=== PATIENT | male | born 1970 | race Caucasian/White ===

== ENCOUNTER 2023-09-10 13:54 | Observation (INO) | payer OTHER ==
[~2023-09-10] VITALS: Ht 182.9 cm; Wt 136.1 kg
[2023-09-10 14:02] VITALS: BP 126/84; PULSE 85; RESP 16; TEMP 98.3; O2SAT 96
[2023-09-10 15:02] LABS: BASOPHILS # (AUTO) 0.1 K/uL (0.00-0.22); BASOPHILS % (AUTO) 0.5 % (0.0-2.0); EOSINOPHILS # (AUTO) 0.3 K/uL (0-0.4); EOSINOPHILS % (AUTO) 3.3 % (0.0-4.0); HEMATOCRIT 44.9 % (36-52); HEMOGLOBIN 14.6 g/dL (12.0-18.0); LYMPHOCYTES # (AUTO) 2.3 K/uL (2.0-11.5); LYMPHOCYTES % (AUTO) 23.2 % (20.5-51.1); MEAN CORPUSCULAR HEMOGLOBIN 27 pg (27-31); MEAN CORPUSCULAR HGB CONC 33 g/dL (33-37); MEAN CORPUSCULAR VOLUME 83.7 fL (80-94); MONOCYTES % (AUTO) 10.4 % (1.7-9.3); NEUTROPHILS # (AUTO) 6.3 K/uL (1.8-7.7); NEUTROPHILS % (AUTO) 62.6 % (42.2-75.2); PLATELET COUNT (AUTO) 176 K/uL (140-450); RED BLOOD CELL COUNT(AUTO) 5.36 MIL/uL (4.20-6.10); RED CELL DISTRIBUTION WIDTH 16.9 % (11.6-13.7)
[2023-09-10] MEDS: MORPHINE SULFATE 4 MG/ML SYR IVP ONE (15:04)
[2023-09-10] MEDS: ONDANSETRON 4 MG/2 ML VIAL IVP ONE (15:04)
[2023-09-10 15:11] LABS: ANION GAP 16.1 (8-16); CALCIUM 9.5 mg/dL (8.5-10.1); CARBON DIOXIDE 25.1 mmol/L (21-32); CREATININE 1.1 mg/dL (0.6-1.3); POTASSIUM 4.2 mmol/L (3.5-5.1)
[2023-09-10 15:29] LABS: ALANINE AMINOTRANSFERASE 12 U/L (12-78); ALBUMIN 3.5 g/dL (3.4-5.0); ALKALINE PHOSPHATASE 101 U/L (50-136); ASPARTATE AMINOTRANSFERASE 8 U/L (15-37); BILIRUBIN,DIRECT 0.2 mg/dL (0.0-0.3); TOTAL BILIRUBIN 1.1 mg/dL (0.0-1.0); TOTAL PROTEIN, SERUM 7.3 g/dL (6.4-8.2)
[2023-09-10] MEDS: FUROSEMIDE 40 MG/4 ML VIAL IVP SCH (17:10)
[2023-09-10] MEDS ORDERED: ACETAMINOPHEN 325 MG TAB PO PRN (17:55)
[2023-09-10] MEDS ORDERED: ONDANSETRON 4 MG/2 ML VIAL IVP PRN (17:55)
[2023-09-10] MEDS ORDERED: DEXTROSE 50% 50 ML SYR IVP PRN ×2 (18:00→19:05)
[2023-09-10] MEDS ORDERED: INSULIN LISPRO SLIDING SCALE 100 UNITS/ML VIAL SUBQ PRN (19:05)
[2023-09-10] MEDS ORDERED: LINA5TAB PO (20:11)
[2023-09-10] MEDS ORDERED: EMPA10TA PO (20:17)
[2023-09-10] MEDS ORDERED: METF-713 PO (20:17)
[2023-09-10] MEDS ORDERED: SERT50TA PO (20:17)
[2023-09-10] MEDS ORDERED: ISOS20TA13 PO (20:17)
[2023-09-10] MEDS ORDERED: APIX5TAB PO (20:17)
[2023-09-10] MEDS ORDERED: ATOR40TA40 PO (20:17)
[2023-09-10] MEDS ORDERED: LISI-951 PO (20:17)
[2023-09-10] MEDS ORDERED: CARV3.12 PO (20:17)
[2023-09-10] MEDS ORDERED: NITR0.4T2 SL (20:17)
[2023-09-10] MEDS ORDERED: FURO-570 PO (20:17)
[2023-09-10] MEDS ORDERED: APIXABAN 2.5 MG TAB PO SCH (21:00)
[2023-09-10] MEDS ORDERED: BLOOD GLUCOSE MONITORING 1 DEV DEV FS SCH (21:00)
[2023-09-10] MEDS: BLOOD GLUCOSE MONITORING 1 DEV DEV FS SCH (21:29)
[2023-09-10] MEDS: carvediloL 3.125 MG TAB PO SCH (21:29)
[2023-09-10] MEDS: APIXABAN 2.5 MG TAB PO SCH (21:29)
[2023-09-10] MEDS: levETIRAcetam 500 MG TAB PO SCH (21:30)
[2023-09-10] MEDS: ATORVASTATIN 20 MG TAB PO SCH (21:37)
[2023-09-10] MEDS: INSULIN LISPRO SLIDING SCALE 100 UNITS/ML VIAL SUBQ PRN (21:41)
[2023-09-10 23:30] VITALS: PULSE 60; RESP 18; O2SAT 94
[2023-09-10 23:55] VITALS: PULSE 67
[2023-09-11] MEDS: MORPHINE SULFATE 2 MG/ML SYR IVP PRN (00:33)
[2023-09-11 04:00] VITALS: BP 104/66; PULSE 59; PULSE 62; RESP 18; TEMP 96.8; O2SAT 95
[2023-09-11 08:00] VITALS: BP_SYST 105; BP_SYST 106; BP_DIAS 72; BP_DIAS 79; PULSE 60; PULSE 61; PULSE 65; PULSE 66; RESP 18; RESP 20; TEMP 97.2; TEMP 98.2; O2SAT 98
[2023-09-11] MEDS ORDERED: ASPIRIN 81 MG TAB.CHEW PO SCH ×2 (09:00)
[2023-09-11] MEDS ORDERED: ATORVASTATIN 20 MG TAB PO SCH (09:00)
[2023-09-11] MEDS: MEDS-TO-BEDS MC SCH (09:00)
[2023-09-11] MEDS ORDERED: ENOXAPARIN 40 MG/0.4 ML SYR SUBQ SCH (09:00)
[2023-09-11] MEDS: ISOSORBIDE MONONITRATE 30 MG TABER PO SCH (09:56)
[2023-09-11] MEDS: methIMAzole 5 MG TAB PO SCH (09:56)
[2023-09-11] MEDS: CLOPIDOGREL 75 MG TAB PO SCH (09:57)
[2023-09-11] MEDS ORDERED: TAP5 PO (11:57)
[2023-09-11] MEDS ORDERED: ISOS30TE68 PO (11:57)
[2023-09-11 11:58] VITALS: BP 104/76; PULSE 70; RESP 20; TEMP 98; O2SAT 99
[2023-09-11 11:59] VITALS: PULSE 72
[2023-09-11 12:03] VITALS: BP 136/72; PULSE 84; RESP 20; TEMP 98.2
== END 2023-09-11 16:44 | disposition home or self-care (01) ==
LOC: MED 13:54 → MTU 17:58
PROVIDERS: ADMIT Internal Medicine; ATTEND Internal Medicine
DX: R07.89 Other chest pain (principal); I11.0 Hypertensive heart disease with heart failure; I50.23 Acute on chronic systolic (congestive) heart failure; E11.9 Type 2 diabetes mellitus without complications; E78.5 Hyperlipidemia, unspecified; I25.10 Atherosclerotic heart disease of native coronary artery without angina pectoris; I48.91 Unspecified atrial fibrillation; Z86.73 Personal history of transient ischemic attack (TIA), and cerebral infarction without residual deficits; Z86.718 Personal history of other venous thrombosis and embolism; Z79.899 Other long term (current) drug therapy
CPT/HCPCS: 36415; 71045; 80048; 80076; 82948; 83880; 84484; 85025; 87081; 93005; 96372; 96374; 96375; 96376; 99285; G0378; J1815; J1940; J2270; J2405

== ENCOUNTER 2023-12-16 11:23 | Observation (INO) | payer OTHER ==
[2023-12-16] VITALS (8 sets, daily range): BP systolic 109; BP diastolic 76; PULSE 67–74; RESP 18–20; TEMP 97.8; O2SAT 97–99
[~2023-12-16] VITALS: Ht 175.3 cm; Wt 86.2 kg
[~2023-12-16 11:23] MED LIST: APIX5TAB PO; ATOR40TA40 PO; CARV3.12 PO; EMPA10TA PO; FURO-570 PO; ISOS20TA13 PO; ISOS30TE68 PO; LINA5TAB PO; LISI-951 PO; METF-713 PO; NITR0.4T2 SL; SERT50TA PO; TAP5 PO
[2023-12-16] MEDS ORDERED: NACL 0.9% 1,000 ML IV SCH (11:45)
[2023-12-16] MEDS ORDERED: HYDROcodone/APAP 5/325 MG 1 TAB TAB PO PRN ×2 (11:45→14:55)
[2023-12-16] MEDS ORDERED: MORPHINE SULFATE 2 MG/ML SYR IVP PRN (11:45)
[2023-12-16] MEDS ORDERED: ONDANSETRON 4 MG/2 ML VIAL IVP PRN ×2 (11:45→14:55)
[2023-12-16] MEDS ORDERED: ACETAMINOPHEN 325 MG TAB PO PRN ×2 (11:45→14:55)
[2023-12-16 12:54] LABS: BASOPHILS % (AUTO) 0.4 % (0.0-2.0); EOSINOPHILS # (AUTO) 0.3 K/uL (0-0.4); EOSINOPHILS % (AUTO) 3.4 % (0.0-4.0); HEMATOCRIT 41.2 % (36-52); HEMOGLOBIN 13.6 g/dL (12.0-18.0); LYMPHOCYTES # (AUTO) 1.8 K/uL (2.0-11.5); LYMPHOCYTES % (AUTO) 19.5 % (20.5-51.1); MEAN CORPUSCULAR HEMOGLOBIN 29 pg (27-31); MEAN CORPUSCULAR HGB CONC 33 g/dL (33-37); MONOCYTES # (AUTO) 0.5 K/uL (0.8-1.0); MONOCYTES % (AUTO) 5.5 % (1.7-9.3); NEUTROPHILS # (AUTO) 6.7 K/uL (1.8-7.7); NEUTROPHILS % (AUTO) 71.2 % (42.2-75.2); PLATELET COUNT (AUTO) 144 K/uL (140-450); RED BLOOD CELL COUNT(AUTO) 4.63 MIL/uL (4.20-6.10); RED CELL DISTRIBUTION WIDTH 16.2 % (11.6-13.7); WHITE BLOOD COUNT (AUTO) 9.4 K/uL (4.8-10.8)
[2023-12-16 13:44] LABS: ANION GAP 11.2 (8-16); CALCIUM 8.8 mg/dL (8.5-10.1); CARBON DIOXIDE 30.1 mmol/L (21-32); CREATININE 1.1 mg/dL (0.6-1.3); POTASSIUM 4.3 mmol/L (3.5-5.1)
[2023-12-16 13:49] LABS: INR 1.06 (0.8-1.2); PARTIAL THROMBOPLASTIN TIME 22.6 secs (22-35.6); PROTHROMBIN TIME 11.1 secs (10.8-13.4)
[2023-12-16 13:54] LABS: ALANINE AMINOTRANSFERASE 22 U/L (12-78); ALBUMIN 3.6 g/dL (3.4-5.0); ALKALINE PHOSPHATASE 82 U/L (50-136); ASPARTATE AMINOTRANSFERASE 12 U/L (15-37); BILIRUBIN,DIRECT 0.2 mg/dL (0.0-0.3); TOTAL BILIRUBIN 1.2 mg/dL (0.0-1.0); TOTAL PROTEIN, SERUM 7.4 g/dL (6.4-8.2)
[2023-12-16] MEDS ORDERED: BENZ150C7 PO (14:19)
[2023-12-16] MEDS ORDERED: DEXTROSE 50% 50 ML SYR IVP PRN (14:55)
[2023-12-16] MEDS ORDERED: ALUMINUM HYD/MAG/SIMETHICONE 30 ML UDC PO PRN (14:55)
[2023-12-16] MEDS ORDERED: LORazepam 2 MG/ML VIAL IVP PRN (14:55)
[2023-12-16] MEDS: BLOOD GLUCOSE MONITORING 1 DEV DEV FS SCH (16:59)
[2023-12-16] MEDS ORDERED: NON-FORMULARY ITEM (Benzonatate 1 CAP) PO SCH (17:00)
[2023-12-16] MEDS: metFORMIN 500 MG TAB PO SCH (17:24)
[2023-12-16] MEDS ORDERED: ALBUTEROL 0.083% 2.5 MG/3 ML NEBU INH ONE (19:50)
[2023-12-16] MEDS: carvediloL 3.125 MG TAB PO SCH (21:08)
[2023-12-16] MEDS: ZOLPIDEM 5 MG TAB PO PRN (21:09)
[2023-12-16] MEDS: FUROSEMIDE 40 MG TAB PO SCH (21:09)
[2023-12-16] MEDS: INSULIN LISPRO SLIDING SCALE 100 UNITS/ML VIAL SUBQ PRN (21:10)
[2023-12-17] VITALS (8 sets, daily range): BP systolic 93–134; BP diastolic 53–68; PULSE 61–81; RESP 18–75; TEMP 97–97.6; O2SAT 96–100
[2023-12-17 06:41] LABS: BASOPHILS % (AUTO) 0.4 % (0.0-2.0); EOSINOPHILS # (AUTO) 0.3 K/uL (0-0.4); EOSINOPHILS % (AUTO) 3.4 % (0.0-4.0); HEMATOCRIT 39.4 % (36-52); HEMOGLOBIN 13.2 g/dL (12.0-18.0); LYMPHOCYTES # (AUTO) 2.2 K/uL (2.0-11.5); LYMPHOCYTES % (AUTO) 23.3 % (20.5-51.1); MEAN CORPUSCULAR HEMOGLOBIN 29 pg (27-31); MEAN CORPUSCULAR HGB CONC 34 g/dL (33-37); MEAN CORPUSCULAR VOLUME 87.1 fL (80-94); MONOCYTES # (AUTO) 0.8 K/uL (0.8-1.0); MONOCYTES % (AUTO) 7.9 % (1.7-9.3); NEUTROPHILS # (AUTO) 6.2 K/uL (1.8-7.7); PLATELET COUNT (AUTO) 132 K/uL (140-450); RED BLOOD CELL COUNT(AUTO) 4.52 MIL/uL (4.20-6.10); RED CELL DISTRIBUTION WIDTH 15.8 % (11.6-13.7); WHITE BLOOD COUNT (AUTO) 9.5 K/uL (4.8-10.8)
[2023-12-17 07:00] LABS: ALBUMIN 3.5 g/dL (3.4-5.0); ANION GAP 11.4 (8-16); CALCIUM 8.8 mg/dL (8.5-10.1); CARBON DIOXIDE 31.1 mmol/L (21-32); CREATININE 1.2 mg/dL (0.6-1.3); MAGNESIUM 1.6 mg/dL (1.8-2.4); POTASSIUM 4.5 mmol/L (3.5-5.1); TOTAL BILIRUBIN 0.8 mg/dL (0.0-1.0); TOTAL PROTEIN, SERUM 7.1 g/dL (6.4-8.2)
[2023-12-17] MEDS: MEDS-TO-BEDS MC SCH (08:17)
[2023-12-17] MEDS ORDERED: EMPAGLIFLOZIN 10 MG PO SCH (09:00)
[2023-12-17] MEDS ORDERED: NON-FORMULARY ITEM (Linagliptin (Tradjenta) 5 MG) PO SCH (09:00)
[2023-12-17] MEDS ORDERED: NON-FORMULARY ITEM (Atorvastatin Calcium 1 TAB) PO SCH (09:00)
[2023-12-17] MEDS: APIXABAN 2.5 MG TAB PO SCH (09:06)
[2023-12-17] MEDS: ATORVASTATIN 20 MG TAB PO SCH (09:07)
[2023-12-17] MEDS: SERTRALINE 50 MG TAB PO SCH (09:07)
[2023-12-17] MEDS: methIMAzole 5 MG TAB PO SCH (09:07)
[2023-12-17] MEDS: ASPIRIN 81 MG TAB.CHEW PO SCH (09:07)
[2023-12-17] MEDS: lisinopriL 10 MG TAB PO SCH (09:08)
[2023-12-17] MEDS: DOCUSATE SODIUM 100 MG GELCAP PO SCH (09:08)
[2023-12-17] MEDS: ISOSORBIDE MONONITRATE 30 MG TABER PO SCH (09:08)
[2023-12-17] MEDS: NITROGLYCERIN 0.4 MG TAB SL PRN (12:25)
[2023-12-17] MEDS: MAGNESIUM OXIDE 400 MG TAB PO SCH (14:31)
[2023-12-17] MEDS ORDERED: CALCIUM CARBONATE 500 MG TAB.CHEW PO SCH (16:50)
[2023-12-17] MEDS ORDERED: FAMOTIDINE 20 MG TAB PO SCH (16:50)
[2023-12-17] MEDS: FAMOTIDINE 20 MG TAB ONE (17:15)
[2023-12-17] MEDS: CALCIUM CARBONATE 500 MG TAB.CHEW ONE (17:15)
== END 2023-12-17 18:00 | disposition home or self-care (01) ==
LOC: MED 11:23 → MTU 14:57
PROVIDERS: ADMIT Hospitalist; ATTEND Hospitalist
DX: G45.9 Transient cerebral ischemic attack, unspecified (principal); I11.0 Hypertensive heart disease with heart failure; I50.9 Heart failure, unspecified; E11.9 Type 2 diabetes mellitus without complications; R07.89 Other chest pain; R56.9 Unspecified convulsions; R60.0 Localized edema; I49.9 Cardiac arrhythmia, unspecified; D68.8 Other specified coagulation defects; I63.9 Cerebral infarction, unspecified; E78.5 Hyperlipidemia, unspecified; Z95.0 Presence of cardiac pacemaker; Z79.899 Other long term (current) drug therapy
CPT/HCPCS: 36415; 70450; 71045; 80048; 80053; 80076; 82948; 83735; 84484; 85025; 85610; 85730; 87081; 93005; 94640; 94760; 96372; 99285; G0378; J1815; J7613; J0696; J7060